=== PATIENT | male | born 1955 | race Caucasian/White ===

== ENCOUNTER 2017-11-13 09:04 | Day surgery (SDC) | payer BC ==
[~2017-11-13 09:04] MED LIST: Lactated Ringers 1,000 ML IV SCH; Lidocaine 1%/Sod Bicarbonate in NS 8.4% 1 ML Syringe IDERM PRN; Sodium Chloride 0.9% 10 ML Syringe FLUSH PRN
[2017-11-13] MEDS ORDERED: Bupivacaine 0.25% 30 ML SDV ONE (10:07)
[2017-11-13] MEDS ORDERED: Lidocaine 1% 30 ML SDV ONE (10:07)
--- NOTE | 2017-11-13 10:21 | PCM.PREANE ---
Preanesthetic Assessment - Procedure Proposed Procedure: Left hand carpal Tun[place] release - Anesthesia/Transfusion/Family Hx Anesthesia History: No Prior Anesthesia Family History of Anesthesia Reaction: No Transfusion History: No Prior Transfusion(s) Intubation History: Unknown - Review of Systems General: No Symptoms Pulmonary: No Symptoms Cardiovascular: No Symptoms Gastrointestinal: No Symptoms Neurological: Paresthesia (bilateral hands ) Other: Reports: None - Physical Assessment NPO Status Date: 11/12/17 NPO Status Time: 21:00 O2 Sat by Pulse Oximetry: 95 Respiratory Rate: 16 Vital Signs: Last Vital Signs Temp 36.3 C 11/13/17 09:10 Pulse 69 11/13/17 09:10 Resp 16 11/13/17 09:10 BP 143/94 H 11/13/17 09:10 Pulse Ox 95 11/13/17 09:10 Height: 1.73 m Weight: 106.594 kg ASA Class: 2 Mental Status: Alert & Oriented x3 Airway Class: Mallampati = 3 Dentition: Reports: Normal Dentition Thyro-Mental Finger Breadths: 3 Mouth Opening Finger Breadths: 4 ROM/Head Extension: Full Lungs: Clear to Auscultation, Normal Respiratory Effort Cardiovascular: Regular Rate, Regular Rhythm - Lab Values: Laboratory Last Values MRSA (PCR) Negative 11/05/17 15:00 - Allergies Allergies/Adverse Reactions: Allergies Allergy/AdvReac Type Severity Reaction Status Date / Time No Known Allergies Allergy Verified 11/12/17 15:51 - Blood Product(s) Available: None - Anesthesia Plan Pre-Op Medication Ordered: None - Acknowledgements Anesthesia Type Planned: REBEKAH Pt an Appropriate Candidate for the Planned Anesthesia: Yes Alternatives and Risks of Anesthesia Discussed w Pt/Guardian: Yes Pt/Guardian Understands and Agrees with Anesthesia Plan: Yes PreAnesthesia Questionnaire HEENT History: Reports: Impaired Vision, Other (See Below) Other HEENT History: has glasses, seldom wears Cardiovascular History: Reports: Hypertension Respiratory History: Reports: None Gastrointestinal History: Reports: None Genitourinary History: Reports: None MICROPHONE OPERATOR History: Reports: None Musculoskeletal History: Reports: Other (See Below) Other Musculoskeletal History: carpal tunnel syndrome Neurological History: Reports: None Psychiatric History: Reports: None Endocrine/Metabolic History: Reports: None Hematologic History: Reports: None Immunologic History: Reports: None Oncologic (Cancer) History: Reports: None Dermatologic History: Reports: None - Past Surgical History Head Surgeries/Procedures: Reports: None Cardiovascular Surgical History: Reports: None Respiratory Surgical History: Reports: None GI Surgical History: Reports: None Female Surgical History: Reports: None Male Surgical History: Reports: None Endocrine Surgical History: Reports: None Neurological Surgical History: Reports: None Musculoskeletal Surgical History: Reports: Arthroscopic Knee Oncologic Surgical History: Reports: None Dermatological Surgical History: Reports: None - SUBSTANCE USE Smoking Status *Q: Former Smoker Recreational Drug Use History: No - HOME MEDS Home Medications: Home Meds Cholecalciferol (Vitamin D3) [Vitamin D] 5,000 unit PO DAILY 11/12/17 [History] Fish Oil/[place]-3 Fatty Acids [Fish Oil 1,000 MG] 1 gm PO DAILY 11/12/17 [History ] Ginseng 100 mg PO DAILY 11/12/17 [History] Glucosamine [Glucosamine Sulfate] 500 mg PO DAILY 11/12/17 [History] Lisinopril 10 mg PO DAILY 11/12/17 [History] Lutein 6 mg PO DAILY 11/12/17 [History] Multivitamin [Poly-Vitamin] 1 tab PO DAILY 11/12/17 [History] Acetaminophen/HYDROcodone [[place] 325-5 MG] 1 - 2 tab PO Q6H PRN #10 tablet 11/13 [Rx] - CURRENT (IN HOUSE) MEDS Current Meds: Current Medications Lactated Ringer's (Ringers, Lactated) 1,000 mls @ 125 mls/hr IV ASDIRECTED DORA Stop: 11/13/17 23:00 Last Admin: 11/13/17 09:25 Dose: 125 mls/hr Lidocaine/Sodium Bicarbonate (Buffered Lidocaine 1% In Ns 8.4%) 0.25 ml IDERM ONETIME PRN PRN Reason: Prior to IV Start Stop: 11/13/17 18:00 Last Admin: 11/13/17 09:25 Dose: 0.25 ml Sodium Chloride (Saline Flush) 10 ml FLUSH ASDIRECTED PRN PRN Reason: Keep Vein Open Stop: 11/13/17 18:00 Discontinued Medications Bupivacaine HCl (Marcaine 0.25%) Confirm Administered Dose 30 ml .ROUTE .STK- MED ONE Stop: 11/13/17 10:08 Lidocaine HCl (Xylocaine-Mpf 1%) Confirm Administered Dose 30 ml .ROUTE .STK- MED ONE Stop: 11/13/17 10:08
[2017-11-13] MEDS ORDERED: Propofol 200 MG/20 ML SDV ONE (10:27)
[2017-11-13] MEDS ORDERED: Lidocaine 1% 4 ML ONE (10:30)
[2017-11-13] MEDS ORDERED: Sodium Bicarbonate 8.4% 50 MEQ/50 ML SDV ONE (10:31)
[2017-11-13] MEDS ORDERED: Lidocaine 0.5% 50 ML SDV ONE (10:31)
[2017-11-13] MEDS ORDERED: Midazolam 1 MG/ML 2 ML SDV ONE (10:35)
[2017-11-13] MEDS ORDERED: Lidocaine 1% 2 ML ONE (10:40)
[2017-11-13] MEDS ORDERED: Bupivacaine 0.25% 10 ML SDV ONE (10:57)
[2017-11-13] MEDS ORDERED: Lactated Ringers 1,000 ML ONE (13:35)
--- NOTE | 2017-11-14 09:41 | PCM.OPNOTE ---
- General Post-Op/Procedure Note Date of Surgery/Procedure: 11/13/17 Operative Procedure(s): left carpal tunnel release Pre Op Diagnosis: left median nerve compression neuropathy Post-Op Diagnosis: Same Anesthesia Technique: Regional Block Primary Surgeon: Isreal Butcher Anesthesia Provider: Sumi Crane Storm Chaser: Radha Flores EBEmma in mLs: 5 Complications: None Condition: Good
--- NOTE | 2017-11-14 10:10 | OR ---
DATE OF OPERATION: 11/13/2017 SURGEON: Isreal Butcher MD OPERATION PERFORMED: Left carpal tunnel release. PREOPERATIVE DIAGNOSIS: Left median nerve compression neuropathy. POSTOPERATIVE DIAGNOSIS: Left median nerve compression neuropathy. ANESTHESIA TECHNIQUE: Regional [place] block. ANESTHESIA PROVIDER: Dequan Rausch. STEEL INSPECTOR: Radha Flores PA-C. ESTIMATED BLOOD LOSS: Less than 5 mL. COMPLICATIONS: None. CONDITION: Stable. DESCRIPTION OF PROCEDURE: The patient was identified in the preop holding area. Proper site was marked and identified by the surgeon. The patient was taken back to the operating theater where after adequate anesthesia, the patient's left upper extremity matthew block done. At this time, he was sterilely prepped and draped in the usual sterile fashion. OR time-out was performed. The patient did not receive antibiotics as it is not indicated for soft tissue hand procedure. At this time, incision was made using Fuller cardinal line and ulnar border of the fourth digit. This was taken down to the palmar cutaneous fascia. Palmar cutaneous fascia was incised along the incisional length. Transverse carpal ligament was identified and a small rent was made in the transverse carpal ligament. [place] elevator was then placed deep to the carpal tunnel and [place] blade was then used for release distally of the transverse carpal ligament, making sure to protect the nerve. It was found to be adequately released all the way distally. Attention was turned proximally, tenotomy scissors were then used making sure to keep the tips of ulnar to protect the palmar cutaneous branch of the median nerve. At this time, superficial forearm fascia as well as transverse carpal ligament were released proximally. There was found to be adequate release both proximally and distally. The nerve was otherwise intact. Adequate saline was irrigated through the wound. 4-0 nylon simple suture was used for closure of the skin. The patient was sent to the PACU in stable condition with sterile soft dressing. ANESTHESIA: MMODAL /[id number]
== END 2017-11-13 12:39 | disposition home or self-care (01) ==
LOC: JD.SDS 09:04
PROVIDERS: ATTEND Orthopaedic Surgery
DX: G56.03 Carpal tunnel syndrome, bilateral upper limbs (principal); I10 Essential (primary) hypertension; Z87.891 Personal history of nicotine dependence; Z79.899 Other long term (current) drug therapy
CPT/HCPCS: 64721; 87641; J2001; J2250; J3490; J7120; J2704